=== PATIENT | male | born 1965 | race African-American/Black ===

== ENCOUNTER 2020-01-26 15:53 | Emergency (ER) | payer MEDICAID, OTHER ==
[~2020-01-26] VITALS: Ht 188 cm; Wt 93.0 kg
[2020-01-26 16:00] VITALS: BP_SYST 143
--- NOTE | 2020-01-26 16:00 | NUR ---
Patient to ER bed 3 to gown for evaluation. Side rails up. Report given to LUIS ALBERTO.
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
--- NOTE | 2020-01-26 16:08 | NUR ---
ER Dr. BRADFORD at bedside examining patient.
[2020-01-26] MEDS ORDERED: IBUPROFEN 400 MG TABLET PO ONE (16:30)
[2020-01-26 17:33] VITALS: BP_SYST 143
--- NOTE | 2020-01-26 17:34 | NUR ---
Patient given written and verbal discharge instructions and verbalizes understanding. ER MD discussed with patient the results and treatment provided. Patient in stable condition. ID arm band removed. Patient educated on pain management and to follow up with PMD. Pain Scale 0/10. Opportunity for questions provided and answered. Medication side effect fact sheet provided.
== END 2020-01-26 17:34 | disposition home or self-care (01) ==
LOC: SED 15:53
DX: S01.81XA Laceration without foreign body of other part of head, initial encounter (principal); R07.89 Other chest pain; V49.40XA Driver injured in collision with unspecified motor vehicles in traffic accident, initial encounter; Y93.89 Activity, other specified; Y92.89 Other specified places as the place of occurrence of the external cause; Y99.8 Other external cause status
CPT/HCPCS: 71100; 93005; 99283